=== PATIENT | female | born 1945 | race African-American/Black ===

== ENCOUNTER → 2016-07-11 | Outpatient (CLI) | payer MEDICARE ==
--- NOTE | 2016-07-11 10:48 | KCIC ---
EXAM: Bilateral digital diagnostic mammogram. HISTORY: 70-year-old female presents for follow-up evaluation of nodularity within both breasts demonstrated on a prior mammogram dated 08/09/2015 and sonogram dated 08/21/2015. The patient did not return for recommended six-month follow-up. COMPARISON: 08/21/2015, 08/09/2015, 10/17/2013 TECHNIQUE: Full field digital craniocaudal and mediolateral oblique views of both breasts are obtained. Computer-aided detection is applied. Sonographic imaging of both breasts including all 4 quadrants and the retroareolar regions was performed. FINDINGS: Breast parenchymal composition: Level B - Scattered fibroglandular densities. There is a stable nodular density within the 11 o'clock position of the right breast, allowing for differences in patient positioning and compression technique. There has been interval increase in nodular density within the 1 o'clock position of the left breast. There are few additional nodular densities which are stable within both breasts. There is no suspicious calcification or architectural distortion within either breast. Sonographic imaging of the right breast demonstrates a suspected complex cyst or benign fibrocystic lesion at the 12 o'clock position 3 cm from the nipple measuring 4 mm, likely corresponding with the aforementioned mammographic nodular density. No suspicious lesion is seen within the right breast. There are benign-appearing right axillary lymph nodes. Sonographic imaging of the left breast demonstrates an ill-defined hypoechoic lesion at the 1 o'clock position 3 cm from the nipple, likely corresponding with the aforementioned mammographic nodular density. The margins of this lesion are indistinct. This measures approximately 6 mm and is similar in size compared to the prior study. There is an additional 3 mm hypoechoic lesion at the 9 o'clock position 2 cm from the nipple, likely a complex cyst. There are benign-appearing left axillary lymph nodes. IMPRESSION: 1. 6 mm hypoechoic lesion within the 1 o'clock position of the left breast. This is similar in size compared to a prior sonogram; however, the mammographic appearance is more conspicuous compared to the prior study. This is not clearly cystic or fibrocystic in etiology. Given indistinct margins, sonographic biopsy is recommended for definitive diagnosis. 2. Benign-appearing complex cysts or fibrocystic changes within both breasts. 3. BI-RADS Category 4: Suspicious finding. Sonographic guided biopsy of a lesion at the 1 o'clock position of the left breast is recommended. These findings are recommendations were communicated to the patient and referring physician office. This study was interpreted with the benefit of Computerized Aided Detection (CAD). Mammography is not 100% sensitive in detecting breast cancer. Therefore, a self breast exam and a clinical breast exam are very important. A negative mammogram does not negate a clinically suspicious finding and should not result in a delay in biopsying a clinically suspicious abnormality. Electronically signed by: Maricarmen Kerr (Jul 11, 2016 10:46:44)
== END | disposition home or self-care (01) ==
LOC: KCIC MAMMO 09:06
PROVIDERS: ATTEND Family Medicine
DX: R92.8 Other abnormal and inconclusive findings on diagnostic imaging of breast (principal); N63 Unspecified lump in breast
CPT/HCPCS: 76641; G0204; 77066